=== PATIENT | male | born 1940 | race Caucasian/White ===

== ENCOUNTER 2024-02-19 20:24 | Inpatient (IN) | payer MEDICARE, MEDICAID ==
[~2024-02-19] VITALS: Ht 175.3 cm; Wt 95.3 kg
[~2024-02-19 20:24] MED LIST: ALBU2.5V7 NEB; BUDE10.22 INH; COR3.125T PO; EMPA10TA PO; FURO10VI51 PO; GLIP10TA21 PO; HUM10VIA SQ; LACT1CAP26 PO; LOSA50TA64 PO; METF-438 PO; PIOG30TA71 PO; PRED15SO71 PO; SIMV-45 PO; SPIR25TA5 PO; amiodarone 50MG/ML inj IV ONE
[2024-02-19] MEDS: NORepinephrine 8mg/ 250ml NS 250 ML IV PRN (20:55)
[2024-02-19 21:25] LABS: APTT 63 SECONDS (22-32); INR 1.1 INR; PROTHROMBIN TIME 11.2 SECONDS (9.0-12.0)
[2024-02-19] MEDS ORDERED: heparin 10,000 units/1 ML INJ IV ONE (21:30)
[2024-02-19] MEDS ORDERED: heparin 10,000 units/1 ML INJ IV PRN (21:30)
[2024-02-19 21:31] LABS: BASOPHILS % (AUTO) 0.5 % (0-1); EOSINOPHILS # (AUTO) 0.2 X10'3 (0-0.9); EOSINOPHILS % (AUTO) 1.9 % (0-6); LYMPHOCYTES # (AUTO) 1.3 X10'3 (1.1-4.8); LYMPHOCYTES % (AUTO) 14.1 % (21-51); MEAN PLATELET VOLUME 7.7 FL (7.4-10.4); MONOCYTES % (AUTO) 10.3 % (2-12); NEUTROPHILS # (AUTO) 6.9 X10'3 (1.8-7.7); NEUTROPHILS % (AUTO) 73.2 % (42-75); PLATELET COUNT 366 X10'3 (140-440); WHITE BLOOD COUNT 9.4 X10'3 (4.5-11.0)
[2024-02-19 21:35] LABS: ALANINE AMINOTRANSFERASE 34 U/L (12-78); ALBUMIN 3.3 G/DL (3.4-5.0); ALBUMIN/GLOBULIN RATIO 0.9 (1.1-1.5); ALKALINE PHOSPHATASE 57 IU/L (46-116); ANION GAP 12 (8-16); ASPARTATE AMINO TRANSFERASE 40 U/L (10-37); BILIRUBIN,TOTAL 0.3 MG/DL (0.1-1.0); BLOOD UREA NITROGEN 55 MG/DL (7-18); BUN/CREATININE RATIO 32.4 (10.0-20.0); CALCIUM 8.7 MG/DL (8.5-10.1); CHLORIDE 102 MMOL/L (99-107); GLUCOSE 183 MG/DL (70-104); POTASSIUM 4.1 MMOL/L (3.5-5.1); SODIUM 141 MMOL/L (135-145); TOTAL CARBON DIOXIDE 27.1 MMOL/L (24-32); TOTAL PROTEIN 7.1 G/DL (6.4-8.2); eCRCL 32 ML/MIN; eGFR 38 ML/MIN
[2024-02-19] MEDS: heparin 25,000 UNIT/250ml bag 250 ML IV PRN (21:58)
[2024-02-19 22:00] LABS: HEMOGLOBIN 11.5 g/dl (14.0-17.9); MEAN CORPUSCULAR HEMOGLOBIN 30.2 PG (27.0-31.0); MEAN CORPUSCULAR HGB CONC 31.9 g/dL (33.0-36.5); MEAN CORPUSCULAR VOLUME 94.8 FL (78-98); RED CELL DISTRIBUTION WIDTH 14.6 % (11.5-14.5)
[2024-02-19] MEDS ORDERED: morphine 4 MG/ML inj SYRINge IV PRN (22:00)
[2024-02-19] MEDS ORDERED: magnesium hydroxide 30ml (MOM) UD suspension PO PRN (22:00)
[2024-02-19] MEDS ORDERED: sodium phosphate inj. 30 MMOL in dextrose 5%-water 250 ML IV PRN (22:00)
[2024-02-19] MEDS ORDERED: PERFLUTREN PROTEIN-A MICROSPHR (Optison) 0.22 MG/ML 3ML VIAL IV PRN (22:00)
[2024-02-19] MEDS: LidoCAINE 2% Topical Jelly 11mL syringe (UROJET) TOP ONE (22:00)
[2024-02-19] MEDS ORDERED: NORepinephrine 8mg/ 250ml NS 250 ML IV PRN (22:00)
[2024-02-19] MEDS ORDERED: ondansetron/PF 4mg/2ml inj IV PRN (22:00)
[2024-02-19] MEDS ORDERED: acetaminophen 325mg tablet PO PRN (22:00)
[2024-02-19] MEDS: MESSAGE TO NURSING IV ONE (22:04)
[2024-02-19] MEDS ORDERED: DEXTROSE 15 GM of carb/4 tabs (each vial/BOTTLE has 4 tablets) PO PRN ×2 (22:45)
[2024-02-19] MEDS ORDERED: dextrose 50%-water 50ml dispensing syringe IV PRN ×2 (22:45)
[2024-02-19] MEDS ORDERED: glucagon, human recombinant 1mg kit SUBCUT PRN (22:45)
[2024-02-19 22:46] LABS: MAGNESIUM 2.3 MG/DL (1.5-2.4); PHOSPHORUS 5.8 MG/DL (2.3-4.5); THYROID STIMULATING HORMONE 1.35 ulU/ml (0.34-4.50)
[2024-02-19] MEDS: heparin 10,000 units/1 ML INJ IV ONE (23:34)
[2024-02-19 23:35] VITALS: BP 94/58; PULSE 80; RESP 19; O2SAT 97
[2024-02-20] VITALS (27 sets, daily range): BP systolic 88–139; BP diastolic 49–75; PULSE 73–97; RESP 13–23; O2SAT 89–100
[2024-02-20] MEDS: amiodarone/D5 360MG/200ML BAG 200 ML IV SCH (00:16)
[2024-02-20] MEDS: amiodarone/D5 360MG/200ML BAG 200 ML IV ONE (00:47)
[2024-02-20] MEDS ORDERED: NORepinephrine 8mg/ 250ml NS 250 ML IV PRN (01:55)
[2024-02-20] MEDS ORDERED: INSULIN LISPRO 100 UNIT/ML INSULN.PEN MULTI-DOSE SQ SCH (02:00)
[2024-02-20] MEDS: acetaminophen 325mg tablet PO PRN (02:07)
[2024-02-20 05:09] LABS: BASOPHILS % (AUTO) 0.4 % (0-1); EOSINOPHILS # (AUTO) 0.1 X10'3 (0-0.9); EOSINOPHILS % (AUTO) 1.4 % (0-6); HEMATOCRIT 32.8 % (42.0-52.0); HEMOGLOBIN 10.7 g/dl (14.0-17.9); LYMPHOCYTES # (AUTO) 1.1 X10'3 (1.1-4.8); LYMPHOCYTES % (AUTO) 10.7 % (21-51); MEAN CORPUSCULAR HEMOGLOBIN 31.1 PG (27.0-31.0); MEAN CORPUSCULAR HGB CONC 32.5 g/dL (33.0-36.5); MEAN CORPUSCULAR VOLUME 95.7 FL (78-98); MEAN PLATELET VOLUME 7.4 FL (7.4-10.4); MONOCYTES # (AUTO) 1.1 X10'3 (0-0.9); MONOCYTES % (AUTO) 11.1 % (2-12); NEUTROPHILS # (AUTO) 7.6 X10'3 (1.8-7.7); NEUTROPHILS % (AUTO) 76.4 % (42-75); PLATELET COUNT 324 X10'3 (140-440); RED BLOOD COUNT 3.43 X10'6 (4.70-6.10); RED CELL DISTRIBUTION WIDTH 15.2 % (11.5-14.5); WHITE BLOOD COUNT 9.9 X10'3 (4.5-11.0)
[2024-02-20 05:24] LABS: ALANINE AMINOTRANSFERASE 34 U/L (12-78); ALBUMIN 3.1 G/DL (3.4-5.0); ALBUMIN/GLOBULIN RATIO 0.9 (1.1-1.5); ALKALINE PHOSPHATASE 51 IU/L (46-116); ANION GAP 9 (8-16); ASPARTATE AMINO TRANSFERASE 32 U/L (10-37); BILIRUBIN,TOTAL 0.2 MG/DL (0.1-1.0); BLOOD UREA NITROGEN 52 MG/DL (7-18); BUN/CREATININE RATIO 29.7 (10.0-20.0); CALCIUM 8.6 MG/DL (8.5-10.1); CHLORIDE 102 MMOL/L (99-107); CREATININE 1.75 MG/DL (0.60-1.10); GLUCOSE 193 MG/DL (70-104); MAGNESIUM 2.4 MG/DL (1.5-2.4); POTASSIUM 4.2 MMOL/L (3.5-5.1); SODIUM 144 MMOL/L (135-145); TOTAL CARBON DIOXIDE 33.2 MMOL/L (24-32); TOTAL PROTEIN 6.7 G/DL (6.4-8.2); eCRCL 31 ML/MIN; eGFR 37 ML/MIN
[2024-02-20] MEDS: MESSAGE TO NURSING IV ONE ×3 (05:53→23:43)
[2024-02-20] MEDS: famotidine/PF 10 mg/ml inj IV SCH (07:46)
[2024-02-20] MEDS: aspirin 81mg tab.chew PO SCH (07:46)
[2024-02-20] MEDS: INSULIN LISPRO 100 UNIT/ML INSULN.PEN MULTI-DOSE SQ SCH ×2 (07:46→11:53)
[2024-02-20] MEDS ORDERED: FURO40TA4 PO (11:17)
[2024-02-20] MEDS ORDERED: CARV6.2553 PO (11:17)
[2024-02-20] MEDS ORDERED: EMPA25TA PO (11:17)
[2024-02-20] MEDS ORDERED: DULA0.75 SQ (11:17)
[2024-02-20] MEDS ORDERED: ALBU18HF2 IH (11:17)
[2024-02-20] MEDS ORDERED: SACU1TAB PO (11:17)
[2024-02-20] MEDS ORDERED: SIMV-343 PO (11:19)
[2024-02-20] MEDS: amiodarone 200mg tablet PO SCH (11:30)
[2024-02-20] MEDS ORDERED: LIDOcaine 1% (10mg/ml) 2ml vial ONE (15:39)
[2024-02-20] MEDS ORDERED: heparin 1,000unit/ml 10ml vial 10 ML ONE (15:39)
[2024-02-20] MEDS ORDERED: midazolam 1 mg/ML 2ml injection ONE (15:39)
[2024-02-20] MEDS ORDERED: verapamil 2.5 mg/ml inj IV ONE (15:39)
[2024-02-20] MEDS ORDERED: fentaNYL/PF 50MCG/1 ML 2ML syringe ONE (15:39)
[2024-02-20] MEDS ORDERED: albuterol 2.5 MG/3 ML nebule NEB PRN (15:40)
[2024-02-20] MEDS ORDERED: iohexol 350MG/ML 100ml bottle IV ONE (15:40)
[2024-02-20] MEDS ORDERED: nitroGLYCERIN 500mcg/5mL D5W 5 ML IV ONE (15:44)
[2024-02-20 16:03] LABS: CHOL/HDL RATIO 2.8 (0.00-4.99); CHOLESTEROL 156 MG/DL (0-200); HDL CHOLESTEROL 55 MG/DL (35-60); LDL CHOLESTEROL 86 MG/DL (50-100); TRIGLYCERIDES 59 MG/DL (20-135)
[2024-02-20] MEDS ORDERED: famotidine/PF 10 mg/ml inj IV SCH (16:33)
[2024-02-20 16:51] LABS: APTT 56 SECONDS (22-32)
[2024-02-20] MEDS: sacubitril/valsartan 24mg-26mg tablet PO SCH (19:30)
[2024-02-20] MEDS: carvedilol 6.25mg tablet PO SCH (19:30)
[2024-02-20] MEDS ORDERED: amiodarone 200mg tablet PO SCH (20:00)
[2024-02-20] MEDS ORDERED: HumuLIN NPH/Reg 70/30 insulin 10ml vial SQ SCH (21:00)
[2024-02-20] MEDS: Melatonin 3mg tablet PO SCH (21:16)
[2024-02-20] MEDS: guanFACINE 1 mg tablet PO SCH (22:18)
[2024-02-20 22:45] LABS: APTT 33 SECONDS (22-32)
[2024-02-21] VITALS (16 sets, daily range): BP systolic 91–118; BP diastolic 45–71; PULSE 75–93; RESP 12–24; TEMP 97.3–97.9; O2SAT 89–99
[2024-02-21] MEDS: heparin 25,000 UNIT/250ml bag 250 ML IV PRN (00:38)
[2024-02-21 07:57] LABS: BASOPHILS # (AUTO) 0.1 X10'3 (0-0.2); BASOPHILS % (AUTO) 0.8 % (0-1); EOSINOPHILS # (AUTO) 0.4 X10'3 (0-0.9); EOSINOPHILS % (AUTO) 4.5 % (0-6); HEMATOCRIT 31.1 % (42.0-52.0); LYMPHOCYTES # (AUTO) 1.1 X10'3 (1.1-4.8); LYMPHOCYTES % (AUTO) 12.3 % (21-51); MEAN CORPUSCULAR HEMOGLOBIN 31.6 PG (27.0-31.0); MEAN CORPUSCULAR HGB CONC 32.2 g/dL (33.0-36.5); MEAN CORPUSCULAR VOLUME 98.3 FL (78-98); MONOCYTES # (AUTO) 1.2 X10'3 (0-0.9); MONOCYTES % (AUTO) 13.1 % (2-12); NEUTROPHILS # (AUTO) 6.2 X10'3 (1.8-7.7); NEUTROPHILS % (AUTO) 69.3 % (42-75); PLATELET COUNT 289 X10'3 (140-440); RED BLOOD COUNT 3.17 X10'6 (4.70-6.10); RED CELL DISTRIBUTION WIDTH 15.4 % (11.5-14.5); WHITE BLOOD COUNT 8.9 X10'3 (4.5-11.0)
[2024-02-21] MEDS: atorvastatin 20mg tablet PO SCH (07:57)
[2024-02-21] MEDS: EMPAGLIFLOZIN 25 MG TABLET PO SCH (08:00)
[2024-02-21] MEDS: DULAGLUTIDE SQ SCH (08:00)
[2024-02-21] MEDS ORDERED: HumuLIN NPH/Reg 70/30 insulin 10ml vial SQ SCH (08:00)
[2024-02-21 08:13] LABS: ALANINE AMINOTRANSFERASE 27 U/L (12-78); ALBUMIN 2.9 G/DL (3.4-5.0); ALBUMIN/GLOBULIN RATIO 0.8 (1.1-1.5); ALKALINE PHOSPHATASE 47 IU/L (46-116); ANION GAP 9 (8-16); ASPARTATE AMINO TRANSFERASE 26 U/L (10-37); BILIRUBIN,TOTAL 0.2 MG/DL (0.1-1.0); BLOOD UREA NITROGEN 60 MG/DL (7-18); BUN/CREATININE RATIO 31.3 (10.0-20.0); CALCIUM 8.3 MG/DL (8.5-10.1); CHLORIDE 102 MMOL/L (99-107); CREATININE 1.92 MG/DL (0.60-1.10); GLUCOSE 186 MG/DL (70-104); MAGNESIUM 2.6 MG/DL (1.5-2.4); PHOSPHORUS 4.9 MG/DL (2.3-4.5); POTASSIUM 4.2 MMOL/L (3.5-5.1); SODIUM 138 MMOL/L (135-145); TOTAL CARBON DIOXIDE 26.9 MMOL/L (24-32); TOTAL PROTEIN 6.6 G/DL (6.4-8.2); eCRCL 28 ML/MIN; eGFR 33 ML/MIN
[2024-02-21] MEDS: MESSAGE TO NURSING IV ONE ×2 (09:05→14:48)
[2024-02-21 14:17] LABS: APTT 44 SECONDS (22-32)
[2024-02-21] MEDS: heparin 10,000 units/1 ML INJ IV PRN (15:05)
[2024-02-21] MEDS ORDERED: famotidine/PF 10 mg/ml inj IV SCH (17:30)
[2024-02-21] MEDS: furosemide 40mg tablet PO SCH (20:00)
[2024-02-22] VITALS (10 sets, daily range): BP systolic 91–110; BP diastolic 41–72; PULSE 67–87; RESP 18–24; TEMP 97.3–97.7; O2SAT 92–99
[2024-02-22 06:42] LABS: BASOPHILS % (AUTO) 0.4 % (0-1); EOSINOPHILS # (AUTO) 0.3 X10'3 (0-0.9); EOSINOPHILS % (AUTO) 3.3 % (0-6); HEMATOCRIT 30.2 % (42.0-52.0); HEMOGLOBIN 9.7 g/dl (14.0-17.9); LYMPHOCYTES # (AUTO) 0.8 X10'3 (1.1-4.8); LYMPHOCYTES % (AUTO) 9.9 % (21-51); MEAN CORPUSCULAR HEMOGLOBIN 31.1 PG (27.0-31.0); MEAN CORPUSCULAR VOLUME 97.2 FL (78-98); MEAN PLATELET VOLUME 8.2 FL (7.4-10.4); MONOCYTES # (AUTO) 1.1 X10'3 (0-0.9); NEUTROPHILS # (AUTO) 6.1 X10'3 (1.8-7.7); NEUTROPHILS % (AUTO) 73.4 % (42-75); PLATELET COUNT 272 X10'3 (140-440); RED BLOOD COUNT 3.11 X10'6 (4.70-6.10); WHITE BLOOD COUNT 8.4 X10'3 (4.5-11.0)
[2024-02-22 06:51] LABS: ALANINE AMINOTRANSFERASE 27 U/L (12-78); ALBUMIN/GLOBULIN RATIO 0.9 (1.1-1.5); ALKALINE PHOSPHATASE 46 IU/L (46-116); ANION GAP 6 (8-16); ASPARTATE AMINO TRANSFERASE 27 U/L (10-37); BILIRUBIN,TOTAL 0.3 MG/DL (0.1-1.0); BLOOD UREA NITROGEN 58 MG/DL (7-18); CALCIUM 8.6 MG/DL (8.5-10.1); CHLORIDE 99 MMOL/L (99-107); CREATININE 2.07 MG/DL (0.60-1.10); GLUCOSE 213 MG/DL (70-104); MAGNESIUM 2.4 MG/DL (1.5-2.4); PHOSPHORUS 4.7 MG/DL (2.3-4.5); POTASSIUM 4.3 MMOL/L (3.5-5.1); SODIUM 137 MMOL/L (135-145); TOTAL CARBON DIOXIDE 32.1 MMOL/L (24-32); TOTAL PROTEIN 6.5 G/DL (6.4-8.2); eCRCL 26 ML/MIN; eGFR 31 ML/MIN
[2024-02-22] MEDS ORDERED: famotidine 20mg tablet PO SCH (12:42)
[2024-02-22] MEDS: morphine 2 MG/ML inj. syringe IV PRN (14:50)
[2024-02-23 02:00] VITALS: BP 92/47; PULSE 74; RESP 19; TEMP 97.6; O2SAT 94
[2024-02-23 06:00] VITALS: BP 94/48; PULSE 77; RESP 19; TEMP 97.1; O2SAT 94
[2024-02-23 06:24] LABS: BASOPHILS # (AUTO) 0.1 X10'3 (0-0.2); BASOPHILS % (AUTO) 0.6 % (0-1); EOSINOPHILS # (AUTO) 0.4 X10'3 (0-0.9); EOSINOPHILS % (AUTO) 4.6 % (0-6); HEMATOCRIT 30.2 % (42.0-52.0); HEMOGLOBIN 9.5 g/dl (14.0-17.9); LYMPHOCYTES # (AUTO) 0.9 X10'3 (1.1-4.8); LYMPHOCYTES % (AUTO) 10.4 % (21-51); MEAN CORPUSCULAR HEMOGLOBIN 30.3 PG (27.0-31.0); MEAN CORPUSCULAR HGB CONC 31.4 g/dL (33.0-36.5); MEAN CORPUSCULAR VOLUME 96.7 FL (78-98); MONOCYTES # (AUTO) 1.1 X10'3 (0-0.9); MONOCYTES % (AUTO) 12.7 % (2-12); NEUTROPHILS # (AUTO) 6.3 X10'3 (1.8-7.7); NEUTROPHILS % (AUTO) 71.7 % (42-75); PLATELET COUNT 276 X10'3 (140-440); RED BLOOD COUNT 3.12 X10'6 (4.70-6.10); RED CELL DISTRIBUTION WIDTH 14.7 % (11.5-14.5); WHITE BLOOD COUNT 8.8 X10'3 (4.5-11.0)
[2024-02-23 06:38] LABS: ALANINE AMINOTRANSFERASE 28 U/L (12-78); ALBUMIN/GLOBULIN RATIO 0.8 (1.1-1.5); ALKALINE PHOSPHATASE 47 IU/L (46-116); ANION GAP 9 (8-16); ASPARTATE AMINO TRANSFERASE 31 U/L (10-37); BILIRUBIN,TOTAL 0.4 MG/DL (0.1-1.0); BLOOD UREA NITROGEN 55 MG/DL (7-18); BUN/CREATININE RATIO 30.1 (10.0-20.0); CALCIUM 8.9 MG/DL (8.5-10.1); CHLORIDE 99 MMOL/L (99-107); CREATININE 1.83 MG/DL (0.60-1.10); GLUCOSE 185 MG/DL (70-104); MAGNESIUM 2.5 MG/DL (1.5-2.4); PHOSPHORUS 4.3 MG/DL (2.3-4.5); POTASSIUM 4.5 MMOL/L (3.5-5.1); SODIUM 139 MMOL/L (135-145); TOTAL CARBON DIOXIDE 30.9 MMOL/L (24-32); TOTAL PROTEIN 6.8 G/DL (6.4-8.2); eCRCL 30 ML/MIN; eGFR 35 ML/MIN
[2024-02-23] MEDS: EMPAGLIFLOZIN 10 MG TABLET PO SCH (07:26)
[2024-02-23] MEDS: furosemide 40mg tablet PO SCH (07:27)
[2024-02-23 08:00] VITALS: RESP 19; O2SAT 94
[2024-02-23] MEDS ORDERED: spironolactone 25 MG tablet PO SCH (08:30)
[2024-02-23 11:00] VITALS: BP 101/52; PULSE 77; RESP 19; TEMP 97.1; O2SAT 94
[2024-02-23 15:00] VITALS: BP 112/52; PULSE 82; RESP 18; TEMP 97.4; O2SAT 95
== END 2024-02-23 15:50 | DRG 280 ==
LOC: ER 20:25 → CICU 2S 22:14 → PCU 3S 02-21 13:12
PROVIDERS: ADMIT Internal Medicine Critical Care Medicine; ATTEND Internal Medicine Critical Care Medicine
PROC: 5A2204Z Restoration of Cardiac Rhythm, Single (ICD-10-PCS; 2024-02-19)
PROC: 4A023N7 Measurement of Cardiac Sampling and Pressure, Left Heart, Percutaneous Approach (ICD-10-PCS; principal; 2024-02-20)
PROC: B2111ZZ Fluoroscopy of Multiple Coronary Arteries using Low Osmolar Contrast (ICD-10-PCS; 2024-02-20)
DX: I21.4 Non-ST elevation (NSTEMI) myocardial infarction (principal); I46.9 Cardiac arrest, cause unspecified; I50.23 Acute on chronic systolic (congestive) heart failure; J96.21 Acute and chronic respiratory failure with hypoxia; I13.0 Hypertensive heart and chronic kidney disease with heart failure and stage 1 through stage 4 chronic kidney disease, or unspecified chronic kidney disease; I47.20 Ventricular tachycardia, unspecified; N17.9 Acute kidney failure, unspecified; I25.10 Atherosclerotic heart disease of native coronary artery without angina pectoris; N18.30 Chronic kidney disease, stage 3 unspecified; E78.00 Pure hypercholesterolemia, unspecified; E11.22 Type 2 diabetes mellitus with diabetic chronic kidney disease; I25.5 Ischemic cardiomyopathy; J44.9 Chronic obstructive pulmonary disease, unspecified; F32.A Depression, unspecified; Z66 Do not resuscitate; F03.90 Unspecified dementia, unspecified severity, without behavioral disturbance, psychotic disturbance, mood disturbance, and anxiety; Z87.891 Personal history of nicotine dependence; Z79.84 Long term (current) use of oral hypoglycemic drugs; Z79.4 Long term (current) use of insulin; Z79.899 Other long term (current) drug therapy
CPT/HCPCS: 36415; 71045; 80053; 80061; 82948; 83036; 83735; 83880; 84100; 84443; 84484; 85025; 85610; 85730; 86885; 86900; 86901; 87081; 92950; 93005; 93306; 93458; 94760; 96365; 96367; 97116; 97161; 97530; 97535; 99152; 99291; A6250; A6258; A6402; A6590; C1894; G0378; J0282; J0461; J1644; J1815; J2250; J2270; J3010; J3490; J7030; Q9967